=== PATIENT | female | born 1955 | race Caucasian/White ===

== ENCOUNTER 2016-10-15 09:49 | Emergency (ER) | payer BC ==
--- NOTE | 2016-10-15 12:24 | UC ---
Throat Pain/Nasal Rex HPI - HPI Summary HPI Summary: sore throat x 2 days. - History of Current Complaint Chief Complaint: UCGeneralIllness Stated Complaint: SORE THROAT Time Seen by Provider: 10/15/16 10:15 Hx Obtained From: Patient Onset/Duration: Gradual Onset, Lasting Days, Still Present Severity: Moderate Cough: Nonproductive Associated Signs & Symptoms: Positive: Dysphagia, Hoarseness - mild, slightly deeper voice per pt. not noticable. Negative: Drooling, Wheezing, Sinus Discomfort, Nasal Discharge, Fever, Vomiting, Rash - Allergies/Home Medications Allergies/Adverse Reactions: Allergies Allergy/AdvReac Type Severity Reaction Status Date / Time Codeine Allergy Vomiting Verified 04/17/14 07:44 Hydrocodone Allergy HALLUCINATE Verified 04/17/14 07:44 PMH/Surg Hx/FS Hx/Imm Hx Previously Healthy: Yes - Surgical History Surgical History: Yes Surgery Procedure, Year, and Place: [place] [facility] [place]-BREAST BIOPSY. 1999-STAPEDECTOMY- REPLACEMENT- LEFT EAR. [id number] EAR DRUM RECONSTRUCTION. 2004-LASIK EYE SURGERY. 1961-TONSILLECTOMY. 2008 VEIN [place] FROM [place] [facility] [place] 3 C-SECTIONS - Social History Lives: With Family Alcohol Use: Occasionally Substance Use Type: None Smoking Status (MU): Former Smoker Amount Used/How Often: 1 PPD X 7 YEARS When Did the Patient Quit Smoking/Using Tobacco: 1985 Review of Systems Constitutional: Negative Skin: Negative Eyes: Negative ENT: Sore Throat Respiratory: Negative Cardiovascular: Negative Gastrointestinal: Negative Genitourinary: Negative Neurological: Negative All Other Systems Reviewed And Are Negative: Yes Physical Exam Triage Information Reviewed: Yes Appearance: Well-Appearing, No Pain Distress, Well-Nourished Vital Signs: Initial Vital Signs Temp 98.5 F 10/15/16 10:09 Pulse 79 10/15/16 10:09 Resp 20 10/15/16 10:09 BP 146/78 10/15/16 10:09 Pulse Ox 100 10/15/16 10:09 Vital Signs Reviewed: Yes Eyes: Positive: Conjunctiva Clear. Negative: Discharge ENT: Positive: Hearing grossly normal, Pharyngeal erythema, Other: - periorbital congestion, nasal mucosa pale boggy. Negative: Nasal congestion, Nasal drainage, TMs normal, Tonsillar swelling, Tonsillar exudate, Trismus, Muffled/hoarse voice Neck: Positive: Supple, Nontender, No Lymphadenopathy Respiratory: Positive: Lungs clear, Normal breath sounds Cardiovascular: Positive: RRR, No Murmur Musculoskeletal Exam: Normal Neurological: Positive: Alert, Muscle Tone Normal Psychological: Positive: Age Appropriate Behavior Skin Exam: Normal Throat Pain/Nasal Course/Dx - Course Course Of Treatment: pt noted to have elevated bp, likely d/t pt's condition - Differential Dx/Diagnosis Differential Diagnosis/HQI/PQRI: Otitis Media, Pharyngitis, Sinusitis, Tonsillitis, URI Provider Diagnoses: sore throat, allergies, elevated bp withou dx of htn Discharge - Discharge Plan Condition: Stable Disposition: HOME Patient Education Materials: Allergies (ED), Pharyngitis (ED) Referrals: Kailey Peres MD [Primary Care Provider] - If Needed Additional Instructions: TRY USING THE NETTI POT IN THE MORNINGS DISCUSSED. YOU MUST ALWAYS USE CLEAN WATER.
[2016-10-15 12:27] VITALS: BP 140/76
== END 2016-10-15 12:24 | disposition home or self-care (01) ==
LOC: UCEAST 09:49
DX: J02.9 Acute pharyngitis, unspecified (principal); J31.0 Chronic rhinitis; R03.0 Elevated blood-pressure reading, without diagnosis of hypertension; Z88.5 Allergy status to narcotic agent; Z87.891 Personal history of nicotine dependence
CPT/HCPCS: 87651; 99211; G0463

== ENCOUNTER 2018-04-27 21:18 | Emergency (ER) | payer BC ==
[2018-04-27 21:50] VITALS: BP 150/81
[2018-04-27] MEDS ORDERED: Albuterol HFA INHALER* 8 gm MDI INH ONE (22:28)
--- NOTE | 2018-04-27 22:28 | UC ---
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 - History of Current Complaint Chief Complaint: UCRespiratory Stated Complaint: COUGH Time Seen by Provider: 04/27/18 22:20 Hx Obtained From: Patient ?: No Onset/Duration: Gradual Onset, Lasting Weeks - 2, Still Present Timing: Constant Severity Initially: Mild Severity Currently: Mild Pain Intensity: 0 Character: Cough: Nonproductive Aggravating Factors: Nothing Alleviating Factors: Nothing - Allergies/Home Medications Allergies/Adverse Reactions: Allergies Allergy/AdvReac Type Severity Reaction Status Date / Time codeine Allergy Vomiting Verified 04/27/18 21:51 hydrocodone Allergy Hallucinati Verified 04/27/18 21:51 ons PMH/Surg Hx/FS Hx/Imm Hx Previously Healthy: Yes - Surgical History Surgical History: Yes Surgery Procedure, Year, and Place: [place]CTOM[place] 2000 [facility] [place]. 1973-BREAST BIOPSY. 1999-STAPEDECTOMY- REPLACEMENT- LEFT EAR. [id number] EAR DRUM RECONSTRUCTION. 2004-LASIK EYE SURGERY. 1961-TONSILLECTOMY. 2008 VEIN REMOVED FROM HAND- [facility] [place] 3 C-SECTIONS - Family History Known Family History: Positive: None - Social History Occupation: Employed Full-time Lives: With Family Alcohol Use: Occasionally Substance Use Type: None Smoking Status (MU): Former Smoker Amount Used/How Often: 1 PPD X 7 YEARS When Did the Patient Quit Smoking/Using Tobacco: 1985 Review of Systems All Other Systems Reviewed And Are Negative: Yes Constitutional: Positive: Fatigue Skin: Positive: Negative Eyes: Positive: Negative ENT: Positive: Negative Respiratory: Positive: Cough Cardiovascular: Positive: Negative Gastrointestinal: Positive: Negative Genitourinary: Positive: Negative Motor: Positive: Negative Neurovascular: Positive: Negative Musculoskeletal: Positive: Negative Neurological: Positive: Negative Psychological: Positive: Negative Is Patient Immunocompromised?: Yes Physical Exam Triage Information Reviewed: Yes Appearance: Well-Appearing, No Pain Distress, Well-Nourished Vital Signs: Initial Vital Signs Temp 98.1 F 04/27/18 21:46 Pulse 99 04/27/18 21:46 Resp 18 04/27/18 21:46 BP 150/81 04/27/18 21:46 Pulse Ox 98 04/27/18 21:46 Vital Signs Reviewed: Yes Eye Exam: Normal Eyes: Positive: Conjunctiva Clear ENT Exam: Normal ENT: Positive: Normal ENT inspection, Hearing grossly normal, Pharynx normal, TMs normal, Uvula midline. Negative: Nasal congestion, Tonsillar swelling, Trismus, Muffled voice, Hoarse voice, Dental tenderness, Sinus tenderness Dental Exam: Normal Neck exam: Normal Neck: Positive: Supple, Nontender, No Lymphadenopathy Respiratory Exam: Normal Respiratory: Positive: Chest non-tender, Lungs clear, Normal breath sounds, No respiratory distress, No accessory muscle use Cardiovascular Exam: Normal Cardiovascular: Positive: RRR, No Murmur, Pulses Normal, Brisk Capillary Refill Musculoskeletal Exam: Normal Musculoskeletal: Positive: Strength Intact, ROM Intact, No Edema Neurological Exam: Normal Neurological: Positive: Alert, Muscle Tone Normal Psychological Exam: Normal Skin Exam: Normal Respiratory Course/Dx - Course Course Of Treatment: zithromax, increase fluids rest floow with pcp 1-2 weeks for re check and blood pressure re-check - Differential Dx/Diagnosis Provider Diagnosis: Bronchitis, Hypertension Discharge - Sign-Out/Discharge Documenting (check all that apply): Patient Departure All imaging exams completed and their final reports reviewed: No Studies - Discharge Plan Condition: Stable Disposition: HOME Prescriptions: Azithromycin TAB* [Zithromax TAB (Z-GORGE) 250 mg #6 tabs] 1 tab PO DAILY #4 tab Patient Education Materials: Acute Bronchitis (ED), Hypertension (ED), Acute Cough (ED) Referrals: Kailey Peres MD [Primary Care Provider] - 1 Week - Billing Disposition and Condition Condition: STABLE Disposition: Home
[2018-04-27] MEDS ORDERED: Azithromycin TAB* 250 MG PO ONE (22:29)
== END 2018-04-27 22:55 | disposition home or self-care (01) ==
LOC: UCEAST 21:18
DX: J40 Bronchitis, not specified as acute or chronic (principal); I10 Essential (primary) hypertension; Z87.891 Personal history of nicotine dependence; Z88.5 Allergy status to narcotic agent
CPT/HCPCS: 99213; A9270-GY; G0463

== ENCOUNTER 2018-06-19 11:11 | Emergency (ER) | payer BC ==
--- NOTE | 2018-06-19 11:31 | ED ---
Lower Extremity - HPI Summary HPI Summary: Knee and left elbow injury after a mechanical fall that occurred just prior to arrival. 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 Patient denies head injury or loss of consciousness. Patient states she is unable to walk secondary to right knee pain. She denies past medical history. Symptoms are mild in severity. Moving right knee and left elbow makes symptoms worse. Rest makes symptoms better. Patient took 2 Aleve upon arrival to the ER. - History of Current Complaint Chief Complaint: EDExtremityLower Stated Complaint: RT KNEE INJURY PER PT Time Seen by Provider: 06/19/18 11:21 Hx Obtained From: Patient Pain Intensity: 9 - Allergies/Home Medications Allergies/Adverse Reactions: Allergies Allergy/AdvReac Type Severity Reaction Status Date / Time codeine Allergy Vomiting Verified 06/19/18 12:07 hydrocodone Allergy Hallucinati Verified 06/19/18 12:07 ons Home Medications: Home Medications NK [No Home Medications Reported] 06/19/18 [History Confirmed 06/19/18] PMH/Surg Hx/FS Hx/Imm Hx Previously Healthy: Yes Infectious Disease History: No Infectious Disease History: Denies: Traveled Outside the [place] in Last 30 Days - Family History Known Family History: Positive: Non-Contributory - Social History Occupation: Employed Full-time Lives: With Family Review of Systems Positive: Other - right knee and left elbow pain Positive: Bruising Negative: Weakness, Paresthesia, Numbness All Other Systems Reviewed And Are Negative: Yes Physical Exam Triage Information Reviewed: Yes Vital Signs On Initial Exam: Initial Vitals Temp Pulse Resp BP Pulse Ox 98 F 99 16 178/102 99 06/19/18 11:14 06/19/18 11:14 06/19/18 11:14 06/19/18 11:14 06/19/18 11:14 Vital Signs Reviewed: Yes Appearance: Positive: Well-Appearing - Pt. sitting in wheelchair in NAD. Family member present. Skin: Positive: Warm, Dry Head/Face: Positive: Normal Head/Face Inspection Eyes: Positive: Normal, EOMI, DANIEL Neck: Positive: Supple Pelvic Exam: Positive: Other - Ecchymosis and edema to anterior right knee. Exam limited at this time secondary to pain. Good right pedal pulse. No sensory deficits. No proximal or distal injuries. Superficial abrasion to left elbow with tenderness laterally. Neurological: Positive: Normal, CN Intact II-III Psychiatric: Positive: Affect/Mood Appropriate - [place] Coma Scale Best Eye Response: 4 - Spontaneous Best Motor Response: 6 - Obeys Commands Best Verbal Response: 5 - Oriented Coma Scale Total: 15 Procedures - Splinting Right Lower Extremity Pre-Made Type: knee immobilizer Pre-Proc Neuro Vasc Exam: normal Post-Proc Neuro Vasc Exam: normal Diagnostics - Vital Signs Vital Signs Temp Pulse Resp BP Pulse Ox 06/19/18 11:14 98 F 99 16 178/102 99 - Laboratory Lab Statement: Any lab studies that have been ordered have been reviewed, and results considered in the medical decision making process. Lower Extremity Course/Dx - Course Course Of Treatment: Pt. presenting for knee and elbow injury. Pt. took aleve upon arrival. Knee xray: 4 views of the knee demonstrates a fracture of the patella without significant. displacement. Joint effusion is noted. The tibia and fibula are unremarkable. IMPRESSION: Comminuted fracture of the patella without distraction. Joint effusion is. noted. Pt. placed in garrison wrap and immobilizer. Crutches given. PT. to call ortho. office today for close f.u apt. Discussed pain medication and pt. would like to take tylenol or motrin at home. To ice and elevate. To return to ER if sxs change or worsen. Pt. understands and agrees with plan. - Diagnoses Differential Diagnosis/HQI/PQRI: Positive: Contusion, Fracture (Closed), Sprain , Strain Provider Diagnoses: Patellar fracture, Elbow contusion Discharge - Sign-Out/Discharge Documenting (check all that apply): Patient Departure Patient Received Moderate/Deep Sedation with Procedure: No - Discharge Plan Condition: Good Disposition: HOME Patient Education Materials: Patellar Fracture (ED) Referrals: Dheeraj Cole MD [Medical Doctor] - As Soon As Possible Kailey Peres MD [Primary Care Provider] - Additional Instructions: Call the orthopedic clinic today to schedule a follow up appointment Wear immobilizer and use crutches Ice and elevate intermittently Tylenol or Motrin for pain as directed Return to ER if symptoms change or worsen - Billing Disposition and Condition Condition: GOOD Disposition: Home
[2018-06-19 12:45] VITALS: BP 159/71
== END 2018-06-19 12:40 | disposition home or self-care (01) ==
LOC: ED 11:11 → MERGE 11:11 → ED 12:40
DX: S82.001A Unspecified fracture of right patella, initial encounter for closed fracture (principal); S50.01XA Contusion of right elbow, initial encounter; W01.0XXA Fall on same level from slipping, tripping and stumbling without subsequent striking against object, initial encounter; Y93.01 Activity, walking, marching and hiking; Y92.89 Other specified places as the place of occurrence of the external cause; Z88.5 Allergy status to narcotic agent
CPT/HCPCS: 99282

== ENCOUNTER 2018-07-08 07:40 | Emergency (ER) | payer BC ==
--- OUTSIDE RECORDS SUMMARY | 2018-07-08 07:45 | XMS REPORT | Continuity of Care Document ---
:1955 External Reference #:[id number] Author Name Disha Castaneda Care Team Providers Name Role Phone Buster Baldwin MD Primary Care Physician Unavailable Payers Date Identification Numbers Payment Provider Subscriber Effective: 2016 Policy Number: [id number] [employer] Noe Hubbard Expires: 2018 PayID: [id number] [address] [address] Effective: 2018 Policy Number: [id number] Blue [facility] [address] Noe Hubbard Group Number: [id number] [address] PayID: [id number] [address] Family History Date Family Member(s) Observation Comments General Diabetes General Stroke Social History Type Date Description Comments Sex Unknown 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 consumes alcohol Tobacco Use Start: Unknown End: Patient is a former quit 32 years ago Unknown smoker Smoking Status Reviewed: 07/01/18 Patient is a former quit 32 years ago smoker Exercise Type/Frequency Exercises sporadically Allergies, Adverse Reactions, Alerts Active Allergies Reaction Severity Comments Date Hydrocodone hallucinations 06/19/2018 Codeine nausea 06/19/2018 Medications Active Medications SIG Qnty Indications Ordering Provider Date Tramadol HCL 1 tablets every 6 15tabs Lasha Bach MD 06/19/2018 50mg hours as needed Tablets History Medications No Active Medications Unknown 06/19/2018 - 06/19/2018 Vital Signs Date Vital Result Comment 07/01/2018 8:24am Height 62 inches 5'2" Weight 129.00 lb Heart Rate 70 /min Respiratory Rate 14 /min Pain Level 2 BMI (Body Mass Index) 23.6 kg/m2 06/24/2018 10:28am Height 62 inches 5'2" Weight 129.00 lb Heart Rate 92 /min Respiratory Rate 14 /min Body Temperature 96.7 F Pain Level 4 BMI (Body Mass Index) 23.6 kg/m2 06/19/2018 2:14pm Height 62 inches 5'2" Weight 129.00 lb patient stated Heart Rate 84 /min BP Systolic 140 mmHg BP Diastolic 90 mmHg Respiratory Rate 16 /min Body Temperature 98.6 F Pain Level 9 BMI (Body Mass Index) 23.6 kg/m2 Plan of Treatment Future Appointment(s):07/15/2018 9:45 am - Lasha Bach MD at [facility]07/01/2018 - Lasha Bach, [id number] Unspecified fracture of right patella, initial encounter forNew Xrays:Knee Right 1-2 VWS, Ordered: Follow up:Follow Up: 2 weeks
--- OUTSIDE RECORDS SUMMARY | 2018-07-08 07:45 | XMS REPORT | Continuity of Care Document ---
:1955 External Reference #:[id number] Author Name Valeria El Care Team Providers Name Role Phone Buster Baldwin MD Primary Care Physician Unavailable Payers Date Identification Numbers Payment Provider Subscriber Effective: 2016 Policy Number: [id number] [employer] Noe Hubbard Expires: 2018 PayID: [id number] [address] [address] Effective: 2018 Policy Number: [id number] Blue [facility] [address]e [address] Group Number: [id number] [address] PayID: [id number] [address] [address] Advance Directives Description No Information Available Problems Description No Information Family History Date Family Member(s) Observation Comments General Diabetes General Stroke Social History Type Date Description Comments Sex Unknown 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 consumes alcohol Tobacco Use Start: Unknown End: Patient is a former quit 32 years ago Unknown smoker Smoking Status Reviewed: 06/24/18 Patient is a former quit 32 years ago smoker Exercise Type/Frequency Exercises sporadically Allergies, Adverse Reactions, Alerts Active Allergies Reaction Severity Comments Date Hydrocodone hallucinations 06/19/2018 Codeine nausea 06/19/2018 Medications Active Medications SIG Qnty Indications Ordering Provider Date Tramadol HCL 1 tablets every 6 15tabs Lasha Bach MD 06/19/2018 50mg hours as needed Tablets History Medications No Active Medications Unknown 06/19/2018 - 06/19/2018 Immunizations Description No Information Available Vital Signs Date Vital Result Comment 06/24/2018 10:28am Height 62 inches 5'2" Weight [...] 9 BMI (Body Mass Index) 23.6 kg/m2 Results Description No Information Available Procedures Description No Information Available Encounters Description No Information Available Plan of Treatment Future Appointment(s):07/01/2018 8:30 am - Lasha Bach MD at [facility]06/24/2018 - Lasha Bach, [id number] Unspecified fracture of right patella, initial encounter forNew Xrays:Knee Right 1-2 VWS, Ordered: Follow up:Follow Up: 1 week
--- OUTSIDE RECORDS SUMMARY | 2018-07-08 07:46 | XMS REPORT | Continuity of Care Document ---
:1955 External Reference #:[id number] Author Name Valeria El Care Team Providers Name Role Phone Buster Baldwin MD Primary Care Physician Unavailable Payers Date Identification Numbers Payment Provider Subscriber Effective: 2016 Policy Number: [id number] [employer] Noe Hubbard Expires: 2018 PayID: [id number] [address] [address] Effective: 2018 Policy Number: [id number] [employer] [address] Noe [address] Group Number: [id number] [address] PayID: [id number] [address] [address] Advance Directives Description No Information Available Problems Description No Information Family History Date Family Member(s) Observation Comments General Diabetes General Stroke Social History Type Date Description Comments Sex Unknown 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 consumes alcohol Tobacco Use Start: Unknown End: Patient is a former quit 32 years ago Unknown smoker Smoking Status Reviewed: 06/19/18 Patient is a former quit 32 years ago smoker Exercise Type/Frequency Exercises sporadically Allergies, Adverse Reactions, Alerts Active Allergies Reaction Severity Comments Date Hydrocodone hallucinations 06/19/2018 Codeine nausea 06/19/2018 Medications Description No Active Medications Immunizations Description No Information Available Vital Signs Date Vital Result Comment 06/19/2018 2:14pm Height 62 inches 5'2" Weight 129.00 lb patient stated Heart Rate 84 /min BP Systolic 140 mmHg BP Diastolic 90 mmHg Respiratory Rate 16 /min Body Temperature 98.6 F Pain Level 9 BMI (Body Mass Index) 23.6 kg/m2 Results Description No Information Available Procedures Description No Information Available Encounters Description No Information Available Plan of Treatment 06/19/2018 - COLLINS [id number] Unspecified fracture of right patella, initial encounter forFollow up:after testing / imaging is completed
[2018-07-08 08:00] VITALS: BP 147/82
--- NOTE | 2018-07-08 08:43 | UC ---
Respiratory Complaint HPI - HPI Summary HPI Summary: started 4-5 days ago with dry cough, stuffy nose. getting worse over past day, now has chills, (did not take temperature) , was sick with similar symps 2 months ago and progressed to "bad bronchitis". she has tried albuterol inhaler form past illness with only min relief (tried 1 puff, one time. also tried DayQuil and mucinex with min relief. still coughing - History of Current Complaint Chief Complaint: UCRespiratory Stated Complaint: COUGH, AND SORE THROAT Time Seen by Provider: 07/08/18 08:08 Hx Obtained From: Patient ?: No Onset/Duration: Gradual Onset Timing: Intermittent Episodes Severity Initially: Mild Severity Currently: Moderate Pain Intensity: 4 Character: Cough: Nonproductive Aggravating Factors: Deep Breaths, Recumbent Position Alleviating Factors: Nothing Associated Signs And Symptoms: Positive: Chills, Nasal Congestion. Negative: Fever, Hemoptysis, Calf Pain, Calf Swelling - Allergies/Home Medications Allergies/Adverse Reactions: Allergies Allergy/AdvReac Type Severity Reaction Status Date / Time codeine Allergy Vomiting Verified 07/08/18 08:00 hydrocodone Allergy Hallucinati Verified 07/08/18 08:00 ons PMH/Surg Hx/FS Hx/Imm Hx Previously Healthy: Yes Respiratory History: Bronchitis - Surgical History Surgical History: Yes Surgery Procedure, Year, and Place: HYSTERECTOMY 2000 [facility] [place]. 1973-BREAST BIOPSY. 1999-STAPEDECTOMY- REPLACEMENT- LEFT EAR. [id number] EAR DRUM RECONSTRUCTION. 2004-LASIK EYE SURGERY. 1961-TONSILLECTOMY. 2008 VEIN REMOVED FROM HAND- [facility] [place]. 3 C-SECTIONS - Family History Known Family History: Positive: None, Non-Contributory - Social History Occupation: Employed Full-time Lives: With Family Alcohol Use: Occasionally Substance Use Type: None Smoking Status (MU): Former Smoker Amount Used/How Often: 1 PPD X 7 YEARS Have You Smoked in the Last Year: No When Did the Patient Quit Smoking/Using Tobacco: 1985 Review of Systems All Other Systems Reviewed And Are Negative: Yes Constitutional: Positive: Negative Skin: Positive: Negative ENT: Positive: Sore Throat, Sinus Congestion. Negative: Ear Ache Respiratory: Positive: Cough. Negative: Shortness Of Breath Cardiovascular: Positive: Negative Gastrointestinal: Positive: Negative Neurological: Positive: Negative. Negative: Headache Psychological: Positive: Negative Is Patient Immunocompromised?: No Physical Exam Triage Information Reviewed: Yes Appearance: Well-Appearing, No Pain Distress, Well-Nourished Vital Signs: Initial Vital Signs Temp 98.4 F 07/08/18 07:57 Pulse 97 07/08/18 07:57 Resp 18 07/08/18 07:57 BP 147/82 07/08/18 07:57 Pulse Ox 98 07/08/18 07:57 Vital Signs Reviewed: Yes Eyes: Positive: Conjunctiva Clear ENT: Positive: Pharynx normal, Nasal congestion. Negative: Nasal drainage Neck exam: Normal Neck: Positive: No Lymphadenopathy Respiratory: Positive: Lungs clear, Other: - harsh dry cough with deep insp Cardiovascular Exam: Normal Cardiovascular: Positive: RRR, No Murmur, Pulses Normal, Brisk Capillary Refill Musculoskeletal Exam: Normal Neurological Exam: Normal Psychological Exam: Normal Skin Exam: Normal Skin: Negative: Rashes Respiratory Course/Dx - Differential Dx/Diagnosis Differential Diagnosis/HQI/PQRI: Asthma, Bronchitis, Lower Resp Infection, Sinusitis Provider Diagnosis: Bronchitis Discharge - Sign-Out/Discharge Documenting (check all that apply): Patient Departure All imaging exams completed and their final reports reviewed: No Studies - Discharge Plan Condition: Good Disposition: HOME Prescriptions: Azithromyxin GIULIANO (NF) [Z-Giuliano (Zithromax) 250 mg tabs #6] 2 tab PO .TODAY, THEN 1 DAILY #6 tab Azithromyxin GIULIANO (NF) [Z-Giuliano (Zithromax) 250 mg tabs #6] 2 tab PO .TODAY, THEN 1 DAILY #6 tab Patient Education Materials: Acute Bronchitis (ED) Referrals: Kailey Peres MD [Primary Care Provider] - 2 Days (have blood pressure and cough rechecked ) Additional Instructions: drink plenty of fluids use inhaler: 2 puffs 3-4 times a day for wheezing and shortness of breath start z-giuliano antibiotic return if symptoms worsen - Billing Disposition and Condition Condition: GOOD Disposition: Home - Attestation Statements Provider Attestation: I was available for consult. This patient was seen by the JULIANA. The patient was not presented to, seen by, or examined by me. -Gaurav
== END 2018-07-08 08:15 | disposition home or self-care (01) ==
LOC: EDSEX 07:40 → UCEAST 07:40
DX: J40 Bronchitis, not specified as acute or chronic (principal); Z87.891 Personal history of nicotine dependence; Z88.5 Allergy status to narcotic agent
CPT/HCPCS: 99212; G0463